=== PATIENT | male | born 1990 | race African-American/Black ===

== ENCOUNTER 2018-12-16 22:10 | Emergency (ER) | payer MEDICAID ==
[~2018-12-16] VITALS: Ht 177.8 cm; Wt 75.0 kg
[2018-12-16 23:37] VITALS: BP 103/60
[2018-12-16] MEDS: PERTUSS(ACELL),DIPH,TET VAC/PF 0.5 ML VIAL IM ONE (23:46)
[2018-12-16] MEDS: AMOX TR/POT CLAV 875 MG/125 MG TABLET PO ONE (23:46)
== END 2018-12-17 00:07 | disposition home or self-care (01) ==
LOC: EMS 22:11
DX: S81.831A Puncture wound without foreign body, right lower leg, initial encounter (principal); M79.89 Other specified soft tissue disorders; F17.200 Nicotine dependence, unspecified, uncomplicated; W54.0XXA Bitten by dog, initial encounter; Y93.89 Activity, other specified; Y92.89 Other specified places as the place of occurrence of the external cause; Y99.8 Other external cause status
CPT/HCPCS: 90471; 90715